=== PATIENT | female | born 1970 | race Caucasian/White ===

== ENCOUNTER 2024-09-22 11:00 | Outpatient (RCR) | payer BC, SELFPAY ==
--- NOTE | 2024-09-09 14:24 | PT.OIERPT ---
PT OP Initial Eval Patient Information Outpatient Physical Therapy Treatment Date: 09/09/24 Visit Reasons: Pain in Right shoulder Medical Diagnosis: Right Shoulder Pain Treatment Dx #1: Right Shoulder Mobility Deficits Start of Care: 09/09/24 Date of Onset: November 2023 Smoking Status Smoking Status: Never smoker Initial Assessment Subjective: Pt is a 54 y/o female reports of right shoulder pain (12/02) started in November 2023 which she filed worker's comp. Pt's xray showed moderate OA at the AC joint. No MRI has been done thus far. Pt has limitation with lifting, overhead motions, chores, self care, cooking, cleaning, and performing recreational activities. Objective: Right Shoulder PROM: all motions are WFL with end range pain in all plane Right Shoulder AROM Flexion: 150 deg Abduction: 140 deg External Rotation: 80 deg Internal Rotation: 60 deg Right Shoulder MMTs: grossly 3-/5 Right Scapula MMTs: grossly 3-/5 Special Test (+) neer's Palpation: TTP supraspinatus tendon Assessment: Pt demonstrate right shoulder pain with mobility deficits consistent with primary impingement syndrome leading to difficulty with ADLs. Pt will benefit from physical therapy to increase ROM, strength, and mobility deficits. Short Term and Correction Goals 1) Increase right shoulder PROM WNL in 6 wks to prevent frozen shoulder 2) Increase right shoulder AROM WFL in 6 wks to be able to perform overhead motions 3) Increase right shoulder MMTs grossly to 4/5 in 6 wks to be able to perform lifting activities 4) Increase right scapula MMTs grossly to 4-/5 in 6 wks to be able to perform recreational activities 5) Indep with HEP Treatment Plan 1) Manual Therapy 2) Therapeutic Activities 3) Therapeutic Exercises 4) Modalities (ice, heat) Frequency and Duration: 2 x wk for 6 wks Certification Dates: 09/09/24 to 12/09/24 Procedure Charges OP PT Eval Mod Complex 30 minutes: Yes
--- NOTE | 2024-09-20 16:05 | PT.ODAYNRPT ---
PT Outpatient Daily Note OP Daily Note Outpatient Physical Therapy Treatment Date: 09/20/24 Visit Reasons: Pain in Right shoulder Subjective: Pt's shoulder is the same and continues to have pain in certain arm movement. Objective: Please see flow chart for list of ther ex performed Assessment: tolerate exercises with minimal pain; post ice helped with pain and soreness Plan: Continue with PT Length of Time (minutes) of Treatment: 30 Minutes Procedure Charges Therapeutic Exercise 30 minutes: Yes
--- NOTE | 2024-09-22 12:00 | PT.ODAYNRPT ---
PT Outpatient Daily Note OP Daily Note Outpatient Physical Therapy Treatment Date: 09/22/24 Visit Reasons: Pain in Right shoulder Subjective: Pt's shoulder is sore. Pt hurts more with certain arm movement. Objective: Please see flow chart for list of ther ex performed Assessment: tolerate exercises with minimal pain Plan: Continue with PT Length of Time (minutes) of Treatment: 30 Minutes Procedure Charges Therapeutic Exercise 30 minutes: Yes
== END 2024-09-22 23:59 | disposition home or self-care (01) ==
LOC: CPTX 11:00
PROVIDERS: PCP Nurse Practitioner Family; Referring Provider Nurse Practitioner Family; Visit Provider Nurse Practitioner Family
DX: M25.511 Pain in right shoulder (principal); M19.011 Primary osteoarthritis, right shoulder
CPT/HCPCS: 97110; 97162

== ENCOUNTER 2024-10-06 10:30 | Outpatient (RCR) | payer BC, SELFPAY ==
--- NOTE | 2024-09-27 14:44 | PT.ODAYNRPT ---
PT Outpatient Daily Note OP Daily Note Outpatient Physical Therapy Treatment Date: 09/27/24 Visit Reasons: Pain in RT shoulder Subjective: Pt's shoulder feels same and continues to catch with overhead motions Objective: Please see flow chart for list of ther ex performed Assessment: minimal change in pain, however, demonstrate functional shoulder AROM Plan: Continue with PT Length of Time (minutes) of Treatment: 30 Minutes Procedure Charges Therapeutic Exercise 30 minutes: Yes
--- NOTE | 2024-09-29 15:01 | PT.ODAYNRPT ---
PT Outpatient Daily Note OP Daily Note Outpatient Physical Therapy Treatment Date: 09/29/24 Visit Reasons: Pain in RT shoulder Subjective: No new complaints. Objective: Please see flow sheet for ther ex list. Assessment: Verbal cues and demonstration to perform shoulder 4 way exercise with desired motion, pt complied. Plan: Continue with POC. Length of Time (minutes) of Treatment: 30 Minutes Procedure Charges Therapeutic Exercise 30 minutes: Yes
--- NOTE | 2024-10-04 13:44 | PT.ODAYNRPT ---
PT Outpatient Daily Note OP Daily Note Outpatient Physical Therapy Treatment Date: 10/04/24 Visit Reasons: Pain in RT shoulder Subjective: Pt's shoulder feels about the same and continues to hurt. Pt will like to stop physical therapy after the next session Objective: Please see flow chart for list of ther ex performed Assessment: tolerate exercises minimal changes with shoulder pain post PT session Plan: Continue with PT Length of Time (minutes) of Treatment: 30 Minutes Procedure Charges Therapeutic Exercise 30 minutes: Yes
--- NOTE | 2024-10-06 10:48 | PT.ODS1RPT ---
PT OP Progress/Discharge Note Date of Service: 10/06/24 Progress Note/DC Note Progress Note/Discharge Note: DC Note Patient Information Visit Reasons: Pain in RT shoulder Medical Diagnosis: Right Shoulder Pain Treatment Dx #1: Right Shoulder Pain Service Continue Service or Discharge: Discharge Discharge Date: 10/06/24 Status Subjective: Pt's shoulder feels about the same. Pt continues to have pain in the front of the shoulder worsen at night. Due to pain Pt has limitation with lifitng, chores, self care, cooking, cleaning, and performing recreational activities. Objective: Right Shoulder PROM: all motions are WFL with end range pain into flexion, abduction, and external rotation Right Shoulder AROM Flexion: 150 deg Abduction: 130 deg External Rotation: 80 deg Internal Rotation: 70 deg Right Shoulder MMTs: grossly 3/5 Right Scapula MMTs: grossly 3/5 Special Test (+) neer's Assessment: Pt demonstrate right shoulder pain with mobility deficits leading to difficulty with ADLs. Pt will no longer benefit from physical therapy due to plateau towards goals as well as continued pain. Recommend shoulder MRI to help rule in/out nature of pain. Pt was instructed on HEP last session and educated to continue exercises to maintain overall mobility. Pt performed all exercises safely, thank you for your referrals. Plan: D/C home with HEP and follow up with MD MANZANARES Recommend shoulder MRI Procedure Charges Therapeutic Exercise 30 minutes: Yes
== END 2024-10-23 23:59 | disposition home or self-care (01) ==
LOC: CPTX 10:30
PROVIDERS: PCP Nurse Practitioner Family; Referring Provider Nurse Practitioner Family; Visit Provider Nurse Practitioner Family
DX: M25.511 Pain in right shoulder (principal); M19.011 Primary osteoarthritis, right shoulder
CPT/HCPCS: 97110

== ENCOUNTER → 2025-02-16 | Outpatient (CLI) | payer BC, SELFPAY ==
--- NOTE | 2025-02-16 | XR_ITS ---
Examination: Cervical spine 3 views TECHNIQUE: AP lateral coned AP odontoid cervical spine 3 views Date and time: February 16, 2025 11:51 AM INDICATIONS: Neck pain one year radiating down the arms FINDINGS: Adequate alignment cervical vertebral bodies. No cervical fracture. Intact odontoid. Advanced disc narrowing C5-C6, C6-C7 with posterior osteophyte formation IMPRESSION: Advanced degenerative disc disease C5-C6, C6-C7, consider oblique films follow-up to assess degree of neural foraminal stenosis
--- NOTE | 2025-02-16 11:13 | XR_ITS ---
Examination: Ultrasound soft tissue neck TECHNIQUE: Grayscale sonographic images soft tissue neck Date and time: February 16, 2025, 1124 hours INDICATIONS: Onset bilateral neck swelling today FINDINGS: Right neck soft tissue lymph node 18 x 5 x 13 mm Left neck soft tissue lymph nodes 23 x 6 x 11 mm IMPRESSION: Significant cervical lymphadenopathy Recommend CT soft tissue neck post intravenous contrast follow-up
== END | disposition home or self-care (01) ==
PROVIDERS: PCP Nurse Practitioner Family; Referring Provider Nurse Practitioner Family; Visit Provider Nurse Practitioner Family
DX: R59.0 Localized enlarged lymph nodes (principal); M50.322 Other cervical disc degeneration at C5-C6 level; M48.02 Spinal stenosis, cervical region
CPT/HCPCS: 72040; 76536

== ENCOUNTER → 2025-03-01 | Outpatient (CLI) | payer BC, SELFPAY ==
--- NOTE | 2025-03-01 12:55 | XR_ITS ---
Examination: CT soft tissue neck with intravenous contrast, 2-D sagittal reconstructions. 2-D coronal reconstructions. 3-D reconstructions. Date and time of exam: March 01, 2025, 0113 hours INDICATIONS: Left-sided neck swelling beginning 3 months ago CTDI: vol (mGy): 9.96 DLP: (mGycm): 279 Technique: Multiple 1.25 mm axial sections of the soft tissue neck post intravenous administration 50 cc Isovue-370 have been obtained. 2-D sagittal and coronal reconstructions have been obtained. 3-D reconstructions have been obtained. Low dose protocols were performed. One or more of the following dose reduction techniques were used; automated exposure control, adjustment of the mA and/or KV according to patient size, use of iterative reconstruction technique. Findings: Symmetrical nasopharynx and oropharynx Bilateral carotid triangle lymph nodes, the largest is on the left side 9 mm Symmetrical submandibular glands and symmetrical parotid glands Multiple bilateral thyroid nodules, the largest on the left side 7 mm Normal epiglottis Moderate degenerative disc disease C5-C6 C6-C7 with anterior osteophytes IMPRESSION: Nonspecific carotid triangle lymphadenopathy Recommend ultrasound soft tissue follow-up of any palpable left neck abnormality Multiple thyroid nodules, recommend dedicated thyroid sonography follow-up
--- NOTE | 2025-03-01 13:11 | XR_ITS ---
EXAMINATION: Cervical spine 3 views TECHNIQUE: AP lateral, and AP odontoid cervical spine 3 views Date and time: March 01, 2025, 1422 hours COMPARISON: 02/16/2025 FINDINGS: Adequate alignment cervical vertebral bodies Moderate to advanced degenerative disc disease C5-C6, C6-C7 No cervical fracture Intact odontoid IMPRESSION: Moderate to advanced degenerative disc disease C5-C6, C6-C7
== END | disposition home or self-care (01) ==
PROVIDERS: PCP Family Medicine; Referring Provider Nurse Practitioner Family; Visit Provider Nurse Practitioner Family
DX: R59.0 Localized enlarged lymph nodes (principal); E04.2 Nontoxic multinodular goiter; M50.322 Other cervical disc degeneration at C5-C6 level
CPT/HCPCS: 70491; 72040; A4649; Q9967

== ENCOUNTER → 2025-03-02 | Outpatient (CLI) | payer BC, SELFPAY ==
--- NOTE | 2025-03-02 11:42 | XR_ITS ---
EXAMINATION: Thyroid sonography complete TECHNIQUE: Grayscale sonographic images thyroid lobes Date and time: March 02, 2025, 1148 hours INDICATIONS: Multiple thyroid nodules on CT examination March 01, 2025 FINDINGS: Right thyroid 3.5 cm Mid pole nodule 5 x 5 mm Mid pole cyst 6 x 6 mm Complex cystic solid mass lower pole 11 x 10 mm Left thyroid 4.6 cm Upper pole vascular nodule heterogeneous echogenicity 18 x 14 mm Midpole heterogeneous nodule 14 x 12 mm Lower pole complex mass 11 x 9 mm IMPRESSION: Bilateral thyroid nodules as above Recommend ultrasound-guided fine-needle aspiration of the lower pole right thyroid nodule and the upper pole mid pole and lower pole left thyroid nodule
== END | disposition home or self-care (01) ==
LOC: CDIM 11:21
PROVIDERS: PCP Family Medicine; Referring Provider Student in an Organized Health Care Education/Training Program; Visit Provider Student in an Organized Health Care Education/Training Program
DX: E04.2 Nontoxic multinodular goiter (principal)
CPT/HCPCS: 76536

== ENCOUNTER → 2025-03-23 | Outpatient (CLI) | payer BC, SELFPAY ==
[2025-03-22 10:30] LABS: Basophils # (Auto) 0.1 Thou/mm3 (0.0-0.2); Basophils % (Auto) 1 % (0-2.5); Eosinophils # (Auto) 0.4 Thou/mm3 (0.0-0.5); Eosinophils % (Auto) 5 % (0-10); Hematocrit 45.7 % (36.0-46.0); Hemoglobin 14.9 g/dL (12.0-16.0); Immature Granulocytes Auto 0.02 Thou/mm3 (0.00-0.00); Lymphocytes # (Auto) 1.8 Thou/mm3 (1.0-4.8); Lymphocytes % (Auto) 25 % (10-50); Mean Corpuscular HGB Conc 32.6 g/dl (31.0-37.0); Mean Corpuscular Hemoglobin 30.2 pg (25.0-35.0); Mean Corpuscular Volume 93 fL (80-100); Monocytes # (Auto) 0.6 Thou/mm3 (0.0-0.8); Monocytes % (Auto) 8 % (0-12); Neutrophils # (Auto) 4.5 Thou/mm3 (1.8-7.7); Neutrophils % (Auto) 61 % (37-80); Nucleated Red Blood Cell # 0.00 Thou/mm3 (0.00-0.00); Nucleated Red Blood Cell % 0 /100 WBC (0); Platelet Count 371 Thou/mm3 (140-440); RDW Standard Deviation 43.8 fL (36.4-46.3); Red Blood Count 4.94 Miln/mm3 (4.00-5.20); White Blood Count 7.4 Thou/mm3 (3.6-11.0)
[2025-03-22 10:36] LABS: INR 1.0 (0.9-1.3); Partial Thromboplastin Time 30.6 Seconds (22.0-36.0); Prothrombin Time 11.1 Seconds (9.0-12.2)
--- NOTE | 2025-03-23 | XR_ITS ---
Examination: Ultrasound-guided fine needle percutaneous aspiration thyroid nodule, midpole left thyroid nodule. Thyroid sonography, limited Exam date and time: March 23, 2025, 0937 hours INDICATIONS: Suspicious nodule mid left thyroid lobe on thyroid sonogram March 02, 2025. Technique: A timeout was completed verifying correct patient, procedure, site, positioning and special equipment if applicable. The patient was placed in supine position for the thyroid fine needle percutaneous aspiration The patient's left neck was prepped and draped in sterile fashion. Maximum barrier sterile technique, hand hygiene, ultrasound sterile technique. 1% lidocaine was used to anesthetize the skin and subcutaneous tissues to the patient's right thyroid nodule. Multiple fine needle aspirations were performed and multiple thyroid specimens placed in preservative according to the irm protocol. Specimens appears satisfactory. The attending radiologist was present for the entire procedure. Estimated blood loss 3 cc. The patient tolerated the procedure well and there were no complications. Impression: Successful ultrasound-guided fine-needle percutaneous aspiration thyroid nodule, mid left thyroid nodule.
--- NOTE | 2025-03-23 | XR_ITS ---
Examination: Ultrasound-guided fine needle percutaneous aspiration thyroid nodule, lower pole left thyroid nodule. Thyroid sonography, limited Exam date and time: March 23, 2025, 0939 hours INDICATIONS: Suspicious nodule lower left thyroid lobe on thyroid sonogram March 02, 2025. Technique: A timeout was completed verifying correct patient, procedure, site, positioning and special equipment if applicable. The patient was placed in supine position for the thyroid fine needle percutaneous aspiration The patient's left neck was prepped and draped in sterile fashion. Maximum barrier sterile technique, hand hygiene, ultrasound sterile technique. 1% lidocaine was used to anesthetize the skin and subcutaneous tissues to the patient's right thyroid nodule. Multiple fine needle aspirations were performed and multiple thyroid specimens placed in preservative according to the irm protocol. Specimens appears satisfactory. The attending radiologist was present for the entire procedure. Estimated blood loss 3 cc. The patient tolerated the procedure well and there were no complications. Impression: Successful ultrasound-guided fine-needle percutaneous aspiration thyroid nodule, lower pole thyroid nodule, left.
--- NOTE | 2025-03-23 08:30 | XR_ITS ---
Examination: Ultrasound-guided fine needle percutaneous aspiration thyroid nodule, upper pole left thyroid nodule. Thyroid sonography, limited Exam date and time: March 23, 2025, 0936 hours INDICATIONS: Suspicious nodule upper pole left thyroid Ultrasound thyroid March 02, 2025. Technique: A timeout was completed verifying correct patient, procedure, site, positioning and special equipment if applicable. The patient was placed in supine position for the thyroid fine needle percutaneous aspiration The patient's left neck was prepped and draped in sterile fashion. Maximum barrier sterile technique, hand hygiene, ultrasound sterile technique. 1% lidocaine was used to anesthetize the skin and subcutaneous tissues to the patient's right thyroid nodule. Multiple fine needle aspirations were performed and multiple thyroid specimens placed in preservative according to the irm protocol. Specimens appears satisfactory. The attending radiologist was present for the entire procedure. Estimated blood loss 3 cc. The patient tolerated the procedure well and there were no complications. Impression: Successful ultrasound-guided fine-needle percutaneous aspiration thyroid nodule, upper pole left thyroid nodule.
--- NOTE | 2025-03-23 08:30 | XR_ITS ---
Examination: Ultrasound-guided fine needle percutaneous aspiration thyroid nodule, right thyroid nodule. Thyroid sonography, limited Exam date and time: March 23, 2025, 0934 hours INDICATIONS: Suspicious right thyroid nodule on ultrasound thyroid March 02, 2025. Technique: A timeout was completed verifying correct patient, procedure, site, positioning and special equipment if applicable. The patient was placed in supine position for the thyroid fine needle percutaneous aspiration The patient's right neck was prepped and draped in sterile fashion. Maximum barrier sterile technique, hand hygiene, ultrasound sterile technique. 1% lidocaine was used to anesthetize the skin and subcutaneous tissues to the patient's right thyroid nodule. Multiple fine needle aspirations were performed and multiple thyroid specimens placed in preservative according to the irm protocol. Specimens appears satisfactory. The attending radiologist was present for the entire procedure. Estimated blood loss 3 cc. The patient tolerated the procedure well and there were no complications. Impression: Successful ultrasound-guided fine-needle percutaneous aspiration thyroid nodule, right thyroid nodule.
== END | disposition home or self-care (01) ==
LOC: SIRX 08:12
PROVIDERS: PCP Student in an Organized Health Care Education/Training Program; Referring Provider Student in an Organized Health Care Education/Training Program; Visit Provider Radiology Diagnostic Radiology
DX: E04.2 Nontoxic multinodular goiter (principal)
CPT/HCPCS: 10005; 10006 ×2; 36415; 85025; 85610; 85730

== ENCOUNTER 2025-04-20 08:30 | Outpatient (RCR) | payer BC, SELFPAY ==
--- NOTE | 2025-04-07 16:02 | PTNOTE_ITS ---
PT OP Initial Eval Patient Information Outpatient Physical Therapy Treatment Date: 04/07/25 Visit Reasons: NECK PAIN Medical Diagnosis: M50.30 Treatment Dx #1: Neck Pain Start of Care: 04/07/25 Date of Onset: 6 months ago Smoking Status Smoking Status: Never smoker Initial Assessment Subjective: Pt is a 55 y/o female reports of chronic neck pain (7/10) worsening in the past 6 months. Pt reports of intermittent numbness in the arms L>R. Xray confirmed moderate to severe C5-C6 and C6-C7 segments. No MRI has been done thus far. Pt has limitaiton with lifting, chores, gripping, overhead motions, driving, sleeping, and performing recreational activities. Objective: C/S AROM: all motions are WFL with end range pain in all plane BUE AROM: all motions are WFL with end range pain L>R BUE MMTs: grossly 3/5 Scapula MMTs: grossly 3-/5 Palpation: TTP and hypomobile C5-C7 facets DNF Endurance Test: 8 sec Assessment: Pt demonstrate neck pain with c/s mobility deficits leading to difficulty with ADLs. Pt will attempt physical therapy if pain persist Pt will be refer back to provider for further consultation. Short Term and Interpreter Deaf Goals 1) Increase C/S AROM WNL in 6 wks to be able to perform chores 2) Decrease neck pain to 2/10 in [address] be able to drive 3) Increase scapula MMTs grossly to 4-/5 in 6 wks to be able to perform lifting activities 4) Increase DNF endurance test to 20 sec in 6 wks to be able to perform recreational activities 5) Indep with HEP Treatment Plan 1) Manual Therapy 2) Therapeutic Activities 3) Therapeutic Exercises 4) Modalities (ice, heat, traction) Frequency and Duration: 2 x wk for 6 wks Certification Dates: 04/07/25 to 07/08/25 Procedure Charges OP PT Eval Mod Complex 30 minutes: Yes
--- NOTE | 2025-04-12 10:29 | PT.ODAYNRPT ---
PT Outpatient Daily Note OP Daily Note Outpatient Physical Therapy Treatment Date: 04/12/25 Visit Reasons: NECK PAIN Subjective: Pt's neck is about the same and continues to experience numbness in the hands and fingers. Objective: Please see flow chart for list of ther ex performed Assessment: difficulty completing nerve floss exercise due to increase numbness in the fingers. Pt exhibit increase upper trape and levator tightness L>R pre stretching, however, improved post stretching with heat Plan: Continue with PT Length of Time (minutes) of Treatment: 30 Minutes Procedure Charges Therapeutic Exercise 30 minutes: Yes
--- NOTE | 2025-04-18 11:49 | PT.ODAYNRPT ---
PT Outpatient Daily Note OP Daily Note Outpatient Physical Therapy Treatment Date: 04/18/25 Visit Reasons: NECK PAIN Subjective: Pt's neck is about the same and continues to experience pain down the arms. Pt feels that c/s traction does help the pain. Objective: Please see flow chart for list of ther ex performed Assessment: cues to correct chin tuck to decrease c/s flexion when performing the stretch. c/s traction decrease c/s pain post PT session. Plan: Continue with PT Length of Time (minutes) of Treatment: 30 Minutes Procedure Charges Traction Mechanical: Yes Therapeutic Exercise 15 minutes: Yes
--- NOTE | 2025-04-20 08:45 | PT.ODS1RPT ---
PT OP Progress/Discharge Note Date of Service: 04/20/25 Progress Note/DC Note Progress Note/Discharge Note: DC Note Patient Information Visit Reasons: NECK PAIN Medical Diagnosis: M50.30 Treatment Dx #1: Neck Pain Service Continue Service or Discharge: Discharge Discharge Date: 04/20/25 Status Subjective: Pt's neck feels about the same. Pt still has pain down the arms L>R. Due to pain and symptoms Pt continues to have limitation with overhead motions, lifting, chores, self care, and performing recreational activities. At this time Pt will like to be release from care due to change in insurance starting April 25. Objective: C/S AROM: all motions are WFL BUE AROM: all motions are WFL with end range pain BUE MMTs: grossly 3+/5 Scapula MMTs: grossly 3/5 DNF Endurance Test: 8 sec Assessment: Pt demonstrate functional c/s mobility and UE strength, however, no change in pain and numbness in the arms leading to difficulty with ADLs. Pt will no longer benefit from physical therapy due to minimal progress towards therapy goals as well as change in insurance. Pt advised to follow up with MD for further consultation; thank you for your rerferrals. Plan: D/C home and follow up with PCP Recommend C/S MRI per provider's discretion Procedure Charges Traction Mechanical: Yes Therapeutic Exercise 15 minutes: Yes
== END 2025-04-24 23:59 | disposition home or self-care (01) ==
LOC: CPTX 08:30
PROVIDERS: PCP Student in an Organized Health Care Education/Training Program; Referring Provider Student in an Organized Health Care Education/Training Program; Visit Provider Student in an Organized Health Care Education/Training Program
DX: M54.2 Cervicalgia (principal); G89.29 Other chronic pain
CPT/HCPCS: 97012; 97110; 97162